=== PATIENT | female | born 1975 | race Caucasian/White ===

== ENCOUNTER 2022-05-28 08:51 | Day surgery (SDC) | payer OTHER, SELFPAY ==
--- NOTE | 2022-05-27 10:10 | HO.ANESPROP2 ---
HPI - Anesthesia Eval Consult details Narrative: 47yo F for Upper Endoscopy and Colonoscopy [facility] Past Medical History Medical History GERD (gastroesophageal reflux disease) Graves disease Sinusitis Surgical History Surgical History (Updated 05/28/22 @ 09:09 by Elisa Whitt RN) H/O inguinal hernia repair H/O shoulder surgery H/O thyroidectomy Hx of colonoscopy Social History Social History Patient Tobacco Use Status: Never used Tobacco Use of substances other than those prescribed or required for medical reasons: No Are you DNR?: No Advance Directives: No Advance Directives Information Provided: Yes Meds Allergies Allergy/AdvReac Type Severity Reaction Status Date / Time latex Allergy Unknown Itching Verified 05/28/22 09:10 Seasonal Allergies Allergy Unknown Itchy Eyes Verified 05/28/22 09:10 Home Medications Medication Instructions Recorded Confirmed Last Taken Type apple cider vinegar 500 mg tablet mg PO 05/27/22 05/21/22 History ascorbic acid (vitamin C) 125 mg 125 mg PO DAILY 05/27/22 05/27/22 05/21/22 History chewable tablet (Vitamin C) ashwagandha root extract 500 mg mg PO 05/27/22 05/21/22 History capsule cholecalciferol (vitamin D3) 125 125 mcg PO DAILY 05/27/22 05/27/22 05/21/22 History mcg (5,000 unit) tablet (Vitamin D3) levothyroxine 137 mcg tablet 137 mcg PO DAILY 05/27/22 05/27/22 Unknown History magnesium oxide-magnesium amino cap PO 05/27/22 05/21/22 History acid chelate 300 mg capsule (Magnesium (oxide/AA chelate)) multivitamin 1 tab PO DAILY 05/27/22 05/27/22 05/21/22 History omega-3 fatty acids-vitamin E cap 05/27/22 05/21/22 History 1,000 mg capsule omeprazole 40 mg capsule,delayed 40 mg PO QAM 05/27/22 05/27/22 Unknown History release turmeric root extract 500 mg tablet 500 mg PO DAILY 05/27/22 05/27/22 05/21/22 History vitamin K2 100 mcg capsule 100 mcg PO DAILY 05/27/22 05/27/22 05/21/22 History Exam Exam Date and Time: May 27, 2022 1010 Assessment and Plan Assessment Anesthesia Assessment: Chart Reviewed
[2022-05-28 09:11] VITALS: BMI 21.9
[2022-05-28 09:18] LABS: UPreg QC Valid YES; Urine Pregnancy NEGATIVE (NEGATIVE)
[2022-05-28 09:24] VITALS: BP 112/80; PULSE 87; RESP 15; TEMP 37.1; O2SAT 99
[2022-05-28] MEDS: Lactated Ringers 1,000 ML 100 ML IVCONT (09:37)
--- NOTE | 2022-05-28 10:33 | P.BOP_ITS ---
Brief Operative Note Date of Service: 05/28/22 Pre-op diagnosis: gerd screening Procedure: egd colon Surgeon: Jignesh Baez Anesthesia: MAC Was an S[employer] Plant Supervisor used for this Procedure?: No Estimated blood loss (mL): 2 Pathology: other Condition: stable Disposition: PACU
--- NOTE | 2022-05-28 10:33 | MHC.SHP ---
Pre-Procedural Eval Section A Date of Service: 05/28/22 Section B Chief Complaint: screening,reflux Details of Present Illness: see H&P no changes Relevant Family History (Specify if Yes): No Relevant Social History: None Present Medications: see Short Stay Collaborative assessment Medical History: No relevant PMH History of Previous Operations: No relevant previous surgery Allergies: Allergies Allergy/AdvReac Type Severity Reaction Status Date / Time latex Allergy Unknown Itching Verified 05/28/22 09:10 Seasonal Allergies Allergy Unknown Itchy Eyes Verified 05/28/22 09:10 Review of Systems Sugical H&P ROS: Negative: Constitution, Cardiovascular, Respiratory, Neurological, Psychiatric, Hem-Onc, Allergic/Immunologic, Gastrointestinal, Genitourinary, Musculoskeletal, Integumentary, Endocrine and Eyes/Ears/Nose/Throat Exam Surgical H&P Exam: Normal: HEENT, Normal: Heart, Normal: Lungs, Normal: Extremities, Normal: Abdomen, Normal: Skin and Normal: Neurological Plan Diagnosis/Plan: Unchanged I have reviewed the history and physical and performed a pertinent physical examination on my patient. No changes have occurred unless specified. Time Spent With Patient Time: Total time managing care of this patient today ____ minutes.
--- NOTE | 2022-05-28 10:55 | HO.ANESPROP2 ---
COUNTS INCLUDE 234 BEDS AT THE [facility] Past Medical History Medical History GERD (gastroesophageal reflux disease) Graves disease Sinusitis Surgical History Surgical History (Updated 05/28/22 @ 09:09 by Elisa Whitt RN) H/O inguinal hernia repair H/O shoulder surgery H/O thyroidectomy Hx of colonoscopy Social History Social History Patient Tobacco Use Status: Never used Tobacco Use of substances other than those prescribed or required for medical reasons: No Are you DNR?: No Advance Directives: No Advance Directives Information Provided: Yes Meds Allergies Allergy/AdvReac Type Severity Reaction Status Date / Time latex Allergy Unknown Itching Verified 05/28/22 09:10 Seasonal Allergies Allergy Unknown Itchy Eyes Verified 05/28/22 09:10 Active Medications: Current Medications Lactated Ringer's (Lr) 1,000 mls @ 100 mls/hr IVCONT .Q10H CARMEN Last Admin: 05/28/22 09:37 Dose: 100 mls/hr Home Medications Medication Instructions Recorded Confirmed Last Taken Type apple cider vinegar 500 mg tablet mg PO 05/27/22 05/21/22 History ascorbic acid (vitamin C) 125 mg 125 mg PO DAILY 05/27/22 05/27/22 05/21/22 History chewable tablet (Vitamin C) ashwagandha root extract 500 mg mg PO 05/27/22 05/21/22 History capsule cholecalciferol (vitamin D3) 125 125 mcg PO DAILY 05/27/22 05/27/22 05/21/22 History mcg (5,000 unit) tablet (Vitamin D3) levothyroxine 137 mcg tablet 137 mcg PO DAILY 05/27/22 05/27/22 Unknown History magnesium oxide-magnesium amino cap PO 05/27/22 05/21/22 History acid chelate 300 mg capsule (Magnesium (oxide/AA chelate)) multivitamin 1 tab PO DAILY 05/27/22 05/27/22 05/21/22 History omega-3 fatty acids-vitamin E cap 05/27/22 05/21/22 History 1,000 mg capsule omeprazole 40 mg capsule,delayed 40 mg PO QAM 05/27/22 05/27/22 Unknown History release turmeric root extract 500 mg tablet 500 mg PO DAILY 05/27/22 05/27/22 05/21/22 History vitamin K2 100 mcg capsule 100 mcg PO DAILY 05/27/22 05/27/22 05/21/22 History Exam Exam Date and Time: May 28, 2022 1055 Height,Weight and Vital Signs: Height 5 ft 2 in Weight 54.431 kg Last Vital Signs Temp 98.8 F 05/28/22 09:24 Pulse 87 05/28/22 09:24 Resp 15 05/28/22 09:24 BP 112/80 05/28/22 09:24 Pulse Ox 99 05/28/22 09:24 O2 Del Method Room Air 05/28/22 09:24 Pertinent Lab Results Pertinent Lab Results: Laboratory Tests 05/28/22 09:10 Urine Test NEGATIVE
[2022-05-28 11:32] VITALS: BP 86/52; PULSE 67; RESP 15; TEMP 36.9; O2SAT 98
[2022-05-28 11:47] VITALS: BP 107/60; PULSE 70; RESP 16; O2SAT 100
[2022-05-28 12:02] VITALS: BP 112/69; PULSE 65; RESP 16; TEMP 37.3; O2SAT 100
--- NOTE | 2022-05-28 21:39 | OP_ITS ---
DATE OF SERVICE: 05/28/2022 SURGEON: Jignesh Baez MD INDICATIONS: Gastroesophageal reflux disease, colon cancer screening. PREOPERATIVE DIAGNOSIS: POSTOPERATIVE DIAGNOSIS: PROCEDURE PERFORMED: Upper endoscopy with biopsy, colonoscopy to the terminal ileum. ESTIMATED BLOOD LOSS: COMPLICATIONS: ANESTHESIA: ASSISTANTS: SPECIMENS: MEDICATIONS: Monitored anesthesia care. DESCRIPTION OF PROCEDURE: A history and physical performed. The risks and benefits of the procedure were explained to the patient. Informed consent was obtained. The patient was placed in the left lateral decubitus position. The Olympus video gastroscope was introduced into the esophagus, stomach, and duodenum. Examination was performed and the scope was removed. She tolerated the procedure well. She was repositioned for colonoscopy. A digital rectal exam was performed and was found to be normal. The Olympus pediatric video colonoscope was introduced into the rectum, advanced to the cecum without difficulty. The cecum was identified by transillumination, palpation and identification of ileocecal valve. Examination was performed. The scope was removed. She tolerated the procedure well and was returned to Recovery room in stable condition. FINDINGS: Upper endoscopy: Esophagus: The esophagus was normal. There was no esophagitis. Biopsies were obtained from the EG junction. Stomach: The stomach showed no evidence of masses, ulcers, or polyps. There was some mild nonspecific erythema in the body of the pre-pyloric area. Biopsies were obtained from the antrum to evaluate for H pylori. Duodenum: The bulb and second portion were normal. Colonoscopy: The terminal ileum was examined and appeared normal. The visualized colonic mucosa was normal. The quality of the prep was good. No polyps were identified. There was very mild sigmoid diverticulosis. Retroflexed examination showed small internal hemorrhoids. IMPRESSION: Gastroesophageal reflux disease, normal colonoscopy. RECOMMENDATION: 1. Follow up biopsy results. 2. Repeat colonoscopy is recommended in 10 years. MD ROBERTO Colon/HECTOR / [id number]
== END 2022-05-28 13:19 | disposition home or self-care (01) ==
PROVIDERS: Nurse Practitioner; PCP Internal Medicine; Visit Provider Internal Medicine Gastroenterology
PROC: (CPT 45378; principal; 2022-05-28 10:20)
DX: Z12.11 Encounter for screening for malignant neoplasm of colon (principal); K57.30 Diverticulosis of large intestine without perforation or abscess without bleeding; K64.8 Other hemorrhoids; K21.9 Gastro-esophageal reflux disease without esophagitis; K29.50 Unspecified chronic gastritis without bleeding; E05.00 Thyrotoxicosis with diffuse goiter without thyrotoxic crisis or storm; E89.0 Postprocedural hypothyroidism; J32.9 Chronic sinusitis, unspecified; J30.2 Other seasonal allergic rhinitis; Z79.899 Other long term (current) drug therapy; Z91.040 Latex allergy status
CPT/HCPCS: 45378; 43239; 81025; 88305; 88342